=== PATIENT | male | born 1985 | race Asian ===

== ENCOUNTER 2016-11-11 17:24 | Observation (INO) | payer OTHER ==
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
[2016-11-11 18:03] LABS: BASOPHIL# 0.1 X10e3 (0-0.3); BASOPHIL% 0.5 % (0-2.5); EOSINOPHIL# 0.1 X10e3 (0-0.7); EOSINOPHIL% 0.6 % (0.0-7.0); HEMATOCRIT 44.4 % (38.0-50.0); HEMOGLOBIN 14.3 gm/dL (13.0-16.0); LYMPHOCYTE# 1.7 X10e3 (1.0-3.5); LYMPHOCYTE% 11.2 % (17.0-45.0); MEAN CELL VOLUME 86.5 FL (83-96); MEAN CORPUSCULAR HEMOGLOBIN 27.8 PG (28-34); MEAN CORPUSCULAR HGB CONC 32.1 g/dL (30-36); MEAN PLATELET VOLUME 7.2 FL (6.5-11.5); MONOCYTE# 1.2 X10e3 (0-1.0); MONOCYTE% 7.7 % (3.0-12.0); NEUTROPHIL# 11.9 X10e3 (1.5-7.1); PLATELET COUNT 344 X10e3 (140-420); RED BLOOD COUNT 5.13 X10e (3.90-5.60); RED CELL DISTRIBUTION WIDTH 12.9 % (11.0-15.5); WHITE BLOOD COUNT 14.9 X10e3 (4.0-10.5)
[2016-11-11 18:11] LABS: DIFF IND NO
[2016-11-11 18:24] LABS: ALBUMIN SERUM 4.4 g/dL (3.5-5.0); BILIRUBIN, DIRECT 0.1 mg/dL (0.0-0.2); BILIRUBIN,INDIRECT 0.6 mg/dL (0.0-0.9); BILIRUBIN,TOTAL 0.7 mg/dL (0.2-2.0); CALCIUM SERUM 9.5 mg/dL (8.4-10.2); GLOM FILT RATE Estimated 101.3 mL/min (>60); POTASSIUM 3.8 mmol/L (3.5-5.1); PROTEIN TOTAL SERUM 7.7 g/dL (6.0-8.3)
[2016-11-12] MEDS ORDERED: COATED ASPIRIN325 M1 PO (16:44)
[2016-11-12] MEDS ORDERED: KEFLEX500 M1 PO (16:47)
[2016-11-12] MEDS ORDERED: PERCOCET 5/321 UDTAB PO (16:48)
== END 2016-11-12 18:33 | disposition home or self-care (01) | DRG 563 ==
LOC: CED 17:24 → CEDOF 20:45 → C4C 11-12 04:58
PROVIDERS: Student in an Organized Health Care Education/Training Program
DX: S82.091B Other fracture of right patella, initial encounter for open fracture type I or II (principal); V23.4XXA Motorcycle driver injured in collision with car, pick-up truck or van in traffic accident, initial encounter; F17.210 Nicotine dependence, cigarettes, uncomplicated; Z23 Encounter for immunization
CPT/HCPCS: 36415; 70450; 71020; 72125; 72170; 73560; 73562; 73590; 80048; 80076; 83690; 85025; 90715; 96361; 96374; 96375; 97116; 97161; 97530; 99285; G0378; J0690; J2250; J2270; J2405; J3010